=== PATIENT | female | born 1995 | race Two or more races ===

== ENCOUNTER → 2021-05-10 | Emergency (ER) | payer OTHER ==
[~2021-05-10] VITALS: Ht 162.6 cm; Wt 61.2 kg
== END | disposition home or self-care (01) ==
LOC: ER 09:40
DX: N23 Unspecified renal colic (principal)

== ENCOUNTER 2023-09-19 22:11 | Emergency (ER) | payer OTHER ==
[~2023-09-19] VITALS: Ht 154.9 cm; Wt 45.4 kg
[2023-09-20 02:32] LABS: PH,URINE 5.5 (5.0-8.0); URINE APPEARANCE Clear; URINE BILIRRUBIN Negative (NEGATIVE); URINE BLOOD Large; URINE COLOR Yellow; URINE GLUCOSE Negative (NEGATIVE); URINE LEUKOCYTE Large; URINE NITRATE Negative; URINE PROTEIN Negative (NEGATIVE); URINE UROBILINOGEN 0.2 E.U./dl
[2023-09-20 02:37] LABS: URINE BACTERIA 1389.5 uL (0.0-1933); URINE EPITHELIAL CELLS 2.7 uL (0.0-38.8); URINE RBC 9.3 uL (0.0-20.8); URINE WBC 421.5 uL (0.0-23.2)
[2023-09-20 02:39] LABS: HEMOGLOBIN 12.9 g/dL (12.0-15.00); MEAN CELL VOLUME 81.8 fL (80.00-100.00); PLATELET COUNT 277 K/uL (150-450); RED BLOOD COUNT 4.77 M/uL (4.00-6.00); RED CELL DISTRIBUTION WIDTH 14.4 % (11.5-14.5)
[2023-09-20 02:50] LABS: ANION GAP 13 (10.0-20.0); BLOOD UREA NITROGEN 9 mg/dL (7-18); BUN CREA RATIO 15 (7.0-25.0); CALCIUM 9.5 mg/dL (8.5-10.1); CARBON DIOXIDE 24 mEq/L (21-32); CHLORIDE 106 mmol/L (98-107); GFR 119.92; GLUCOSE FASTING 90 mg/dL (65-100); OSMOLALITY SERUM 276 MOSM/KG (275-295); POTASSIUM 4.21 mEq/L (3.5-5.1); SODIUM 139 mmol/L (136-145)
[2023-09-20 02:51] LABS: HCG QUANTITATIVE < 1 mUI/mL (1-3)
[2023-09-20] MEDS ORDERED: CEPHALEXIN500 MG PO (04:54)
[2023-09-20] MEDS ORDERED: DIPROLENE 0.05%15 GM TOP (04:54)
[2023-09-20] MEDS ORDERED: KETO10TA2 PO (04:54)
== END 2023-09-20 04:57 ==
LOC: ER 22:12
PROVIDERS: General Practice
DX: N39.0 Urinary tract infection, site not specified (principal); R31.9 Hematuria, unspecified; Z88.9 Allergy status to unspecified drugs, medicaments and biological substances; Z91.018 Allergy to other foods